=== PATIENT | male | born 1965 ===

== ENCOUNTER 2019-01-09 14:01 | Outpatient (RCR) | payer OTHER | END 2019-01-30 | disposition home or self-care (01) | LOC: WCC 14:01 | DX: E11.9 Type 2 diabetes mellitus without complications (principal); E11.621 Type 2 diabetes mellitus with foot ulcer; I10 Essential (primary) hypertension; L97.513 Non-pressure chronic ulcer of other part of right foot with necrosis of muscle; L97.514 Non-pressure chronic ulcer of other part of right foot with necrosis of bone; M86.271 Subacute osteomyelitis, right ankle and foot; Z79.899 Other long term (current) drug therapy | CPT/HCPCS: 82962; G0277; G0463; 99204 ==

== ENCOUNTER 2019-01-31 09:06 | Outpatient (RCR) | payer OTHER | END 2019-03-02 | disposition home or self-care (01) | LOC: WCC 09:06 | DX: E11.621 Type 2 diabetes mellitus with foot ulcer (principal); M86.271 Subacute osteomyelitis, right ankle and foot; L97.513 Non-pressure chronic ulcer of other part of right foot with necrosis of muscle; L97.514 Non-pressure chronic ulcer of other part of right foot with necrosis of bone; I10 Essential (primary) hypertension; Z79.899 Other long term (current) drug therapy | CPT/HCPCS: 82962; G0277; G0463 ==

== ENCOUNTER 2019-03-05 08:37 | Outpatient (RCR) | payer OTHER | END 2019-04-01 | disposition home or self-care (01) | LOC: WCC 08:37 | DX: L97.514 Non-pressure chronic ulcer of other part of right foot with necrosis of bone (principal); E11.621 Type 2 diabetes mellitus with foot ulcer; M86.271 Subacute osteomyelitis, right ankle and foot; L97.513 Non-pressure chronic ulcer of other part of right foot with necrosis of muscle; E11.9 Type 2 diabetes mellitus without complications; I10 Essential (primary) hypertension; Z79.899 Other long term (current) drug therapy | CPT/HCPCS: 82962; G0277 ==